=== PATIENT | female | born 1970 | race Caucasian/White ===

== ENCOUNTER 2021-03-14 12:43 | Day surgery (SDC) | payer BC ==
[~2021-03-14 12:43] MED LIST: ADVIL200 MG PO; MULTI VITAMIN1 EACH PO; NEXIUM20 MG PO; NORCO 5-325 TA1 EACH PO
[2021-03-14] MEDS ORDERED: OMEPRAZOLE20 MG PO (13:01)
[2021-03-14] MEDS ORDERED: CLARITIN10 M2 PO (13:01)
--- NOTE | 2021-03-14 15:24 | NUR ---
03/14/21 Zane4 Katherine Gaming 1521- PT ARRIVES TO PACU AWAKE AND TALKING. PT REPORTS NO PAIN OR NAUSEA. RESP EVEN AND UNLABORED. OXYGEN SAT HIGH 90'S ON RA.
--- NOTE | 2021-03-15 10:48 | OR ---
[facility] [address] [place], [place] [address] Signed DATE OF OPERATION: 03/14/2021 SURGEON: Miladis Mejía MD PREOPERATIVE DIAGNOSIS: Colon screening. POSTOPERATIVE DIAGNOSIS: Normal colon to cecum except for possible small hyperplastic polyp of the rectum. PROCEDURE: Total colonoscopy to cecum with cold morcellation polypectomy x1. ANESTHESIA: Intravenous sedation with fentanyl 100 mcg and Versed 8 mg. 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 She is self-referred for colonoscopy. She has no family history of colon cancer and no symptoms of bleeding, diarrhea, or constipation. She understands the risks of bleeding, infection, and perforation related to colonoscopy and wished to proceed. FINDINGS: The prep was excellent. Complete colonoscopy was undertaken to the cecum without question. Ileocecal valve and appendiceal orifice were normal. There were no findings of concern except in the rectosigmoid where a small plaque-like appearing polyp was noted. This may represent hyperplasia. It was excised completely. There were no other findings of concern. DESCRIPTION OF PROCEDURE: The patient was brought to the endoscopy suite and placed in the lateral decubitus position, given intravenous sedation to the point of slurred speech and nystagmus. Digital rectal examination was normal. An Olympus video colonoscope was passed in the rectum and manipulated throughout the colon ultimately intubating the cecum itself. The prep was quite good. Irrigation was undertaken. The ileocecal valve and appendiceal orifice were normal. The scope was withdrawn from that point. Examination throughout showed no sign of abnormality. In the rectosigmoid, there was an area that was suggestive of a small hyperplastic polyp. Narrow band imaging was employed which confirmed that there was indeed a lesion. This Electronically Signed By: MILADIS MEJÍA MD 03/15/21 1048 PATIENT NAME: RICHARDSON LEWIS OPERATIVE REPORT DATE OF : 70 REPORT #: [id number] PHYSICIAN: MILADIS MEJÍA MD PCP: NO PRIMARY CARE PHYSICIAN REPORT IS CONFIDENTIAL AND NOT TO BE RELEASED WITHOUT AUTHORIZATION [facility] [address], [place] [address] Signed was excised with cold morcellation technique without problem. Scope was withdrawn and retroflexed view undertaken showing the rectum to be normal. The scope was removed and the patient was taken to the recovery room in good condition. CONCLUDING DIAGNOSIS: Normal colon except for possible small hyperplastic polyp of rectum (excised). PLAN: Recommend repeat colonoscopy in 10 years, unless the pathology report of the rectosigmoid lesion proves to be adenomatous in which case, would recommend a five year repeat. MD RETA Bull/MODL /[id number] Copies: ~ Electronically Signed By: MILADIS MEÍJA MD 03/15/21 1048 PATIENT NAME: RICHARDSON LEWIS OPERATIVE REPORT DATE OF : 70 REPORT #: [id number] PHYSICIAN: MILADIS MEJÍA MD PCP: NO PRIMARY CARE PHYSICIAN REPORT IS CONFIDENTIAL AND NOT TO BE RELEASED WITHOUT AUTHORIZATION
--- NOTE | 2021-03-18 12:45 | PATH ---
[facility] [address] [place] [id number] Signed SPECIMEN(S): A RECTAL POLYP SPECIMEN SOURCE: A. RECTAL POLYP CLINICAL HISTORY: Screening colonoscopy. Post: Rectal polyp x 1. MICROSCOPIC DESCRIPTION: Histologic sections of all submitted blocks are examined by light microscopy. These findings, together with the gross examination, support the pathologic diagnosis. FINAL PATHOLOGIC DIAGNOSIS: Rectum, polyp, polypectomy: - Hyperplastic polyp. - Negative for dysplasia or malignancy. NAL:cml:C2NR GROSS DESCRIPTION: The specimen, labeled "TG, rectal polyp," is received in formalin and consists of one mckeon soft tissue fragment that measures 0.2 cm in greatest dimension. The specimen is entirely submitted in cassette (A1). JS (under the direct supervision of a pathologist) The Gross Description was prepared using a voice recognition system. The report was reviewed for accuracy; however, sound-alike word errors, addition and/or deletions may occur. If there is any question about this report, please contact Client Services. PERFORMING LABORATORY: The technical component was performed by [facility], [address] [place] [id number] (Production Leader: Toshia Draper MD; CLIA# [id number]). [facility], [address] [place] [id number] (CLIA# [id number]). Diagnostician: Rachel Galicia MD Pathologist Electronically Signed 03/18/2021 PATIENT NAME: RICHARDSON LEWIS PATHOLOGY DATE OF : 70 REPORT #: [id number] PHYSICIAN: ДМИТРИЙ PATHOLOGY PCP: NO PRIMARY CARE PHYSICIAN REPORT IS CONFIDENTIAL AND NOT TO BE RELEASED WITHOUT AUTHORIZATION [address] [address] Signed Copies: ~ PATIENT NAME: RICHARDSON LEWIS PATHOLOGY DATE OF : 70 REPORT #: [id number] PHYSICIAN: ДМИТРИЙ PATHOLOGY PCP: NO PRIMARY CARE PHYSICIAN REPORT IS CONFIDENTIAL AND NOT TO BE RELEASED WITHOUT AUTHORIZATION
== END 2021-03-14 15:55 | disposition home or self-care (01) ==
LOC: OPS 12:43 → DS 14:15 → OPS 15:55
PROVIDERS: ATTEND Surgery
PROC: 0DBN8ZX Excision of Sigmoid Colon, Via Natural or Artificial Opening Endoscopic, Diagnostic (ICD-10-PCS; principal; 2021-03-14 14:15)
DX: Z12.11 Encounter for screening for malignant neoplasm of colon (principal); K63.5 Polyp of colon; Z88.1 Allergy status to other antibiotic agents; Z88.2 Allergy status to sulfonamides; Z90.49 Acquired absence of other specified parts of digestive tract
CPT/HCPCS: 99153; G0500; J2250; J3010; J7121